=== PATIENT | female | born 1970 | race African-American/Black ===

== ENCOUNTER 2021-01-18 09:06 | Inpatient (IN) | payer MEDICAID, OTHER ==
[~2021-01-18] VITALS: Ht 165.1 cm; Wt 78.0 kg
[2021-01-18] MEDS ORDERED: estrogen (09:20)
[2021-01-18] MEDS ORDERED: ELVI1TAB3 PO ×2 (09:20→20:55)
[2021-01-18] MEDS ORDERED: SPIR25TA6 PO (09:21)
[2021-01-18] MEDS ORDERED: ACETAMINOPHEN 325MG TABLET PO ONE (10:00)
[2021-01-18 11:12] LABS: BASOPHILS % 0.7 % (0.0-2.0); EOSINOPHILS % 0.3 % (0.0-5.0); HEMATOCRIT. 35.4 % (36.0-48.0); HEMOGLOBIN. 11.8 g/dL (12.0-16.0); LYMPHOCYTES % 11.2 % (20.0-50.0); MEAN CORPUSCULAR HEMOGLOBIN 29.1 pg (28.0-32.0); MEAN CORPUSCULAR VOLUME 87.1 fL (81.0-99.0); MEAN PLATELET VOLUME 10.4 fl (7.4-10.4); MONOCYTES % 7.6 % (2.0-8.0); NEUTROPHILS % 80.2 % (40.0-76.0); PLATELET 331 x1000/uL (130-400); RED BLOOD CELL COUNT 4.07 mill/uL (4.2-5.4); RED CELL DISTRIBUTION WIDTH 13.4 % (11.6-14.6)
[2021-01-18 11:17] LABS: CHLORIDE 97 mEq/L (98-107)
[2021-01-18] MEDS ORDERED: SODIUM CHLORIDE 0.9% 1000ML BAG (SEPSIS BOLUS) IV NR (11:45)
[2021-01-18 12:36] LABS: CLARITY URINE CLEAR (CLEAR); COLOR URINE YELLOW (YELLOW); KETONES URINE TRACE (NEGATIVE); LEUKOCYTE ESTERASE URINE TRACE (NEGATIVE); NITRITE URINE NEGATIVE (NEGATIVE); OCCULT BLOOD URINE NEGATIVE (NEGATIVE); PH URINE 5.5 (4.5-8.0); PROTEIN URINE 2+ (NEGATIVE); SPECIFIC GRAVITY URINE 1.021 (1.005-1.030)
[2021-01-18 12:59] LABS: *BARBITURATES SCREEN URINE NEGATIVE (NEGATIVE); *BENZODIAZEPINES SCREEN URINE NEGATIVE (NEGATIVE); *COCAINE SCREEN URINE NEGATIVE (NEGATIVE); METHADONE URINE SCREEN NEGATIVE (NEGATIVE); OPIATES URINE SCREEN NEGATIVE (NEGATIVE)
[2021-01-18 13:00] LABS: *AMPHETAMINES SCREEN URINE NEGATIVE (NEGATIVE); CANNABINOID URINE SCREEN NEGATIVE (NEGATIVE); PHENCYCLIDINE URINE SCREEN NEGATIVE (NEGATIVE)
[2021-01-18 13:10] LABS: ETHANOL BLOOD < 10 mg/dL
[2021-01-18 13:18] LABS: HCG SCREEN NEGATIVE
[2021-01-18] MEDS ORDERED: LORAZEPAM 0.5MG TABLET PO PRN (18:00)
[2021-01-18] MEDS ORDERED: ACETAMINOPHEN 325MG TABLET PO PRN ×2 (18:00)
[2021-01-18] MEDS ORDERED: ONDANSETRON HCL 4MG/2ML INJ IV PRN (18:00)
[2021-01-18] MEDS ORDERED: DOCUSATE SODIUM 100MG CAPSULE PO PRN (18:00)
[2021-01-18] MEDS ORDERED: CLONIDINE 0.1MG TABLET PO PRN (18:00)
[2021-01-18] MEDS ORDERED: IPRATROPIUM/ALBUTEROL 0.5-3(2.5)MG/3ML NEB HHN PRN (18:00)
[2021-01-18] MEDS ORDERED: HYDROCODONE/ACETAMINOPHEN 5/325MG TABLET PO PRN (18:00)
[2021-01-18 20:00] VITALS: BP 141/57
[2021-01-18] MEDS ORDERED: ESTR2TAB PO (20:54)
[2021-01-18] MEDS ORDERED: SPIR100T5 PO (20:55)
[2021-01-18] MEDS ORDERED: *PATIENT'S OWN MEDICATION STORAGE XX SCH (22:00)
[2021-01-18] MEDS: PIPERACILLIN/TAZOBACTAM 3.375 G in DEXTROSE 5% WATER 50 ML IV SCH (22:04)
[2021-01-18] MEDS ORDERED: PNEUMOCOCCAL 23-VAL P-SAC VAC 0.5 ML IM ONE (23:45)
[2021-01-18] MEDS ORDERED: INFLUENZA VACCINE 05/PF 0.5 ML SYRINGE IM ONE (23:45)
[2021-01-19] VITALS: BP 107/77
[2021-01-19] MEDS: VANCOMYCIN 1 G PREMIX 200 ML IV SCH ×2 (03:04→14:20)
[2021-01-19 04:00] VITALS: BP 117/73
[2021-01-19] MEDS: PIPERACILLIN/TAZOBACTAM 3.375 G in DEXTROSE 5% WATER 50 ML IV SCH ×2 (06:23→21:33)
[2021-01-19 08:00] VITALS: BP 105/72
[2021-01-19 12:00] VITALS: BP 107/72
[2021-01-19] MEDS: SPIRONOLACTONE 50MG TABLET PO SCH (13:50)
[2021-01-19] MEDS ORDERED: PIPERACILLIN/TAZOBACTAM 3.375 G in DEXTROSE 5% WATER 50 ML IV SCH (14:00)
[2021-01-19] MEDS ORDERED: NALOXONE HCL 0.4MG/ML VIAL IV PRN (14:45)
[2021-01-19 16:00] VITALS: BP 105/66
[2021-01-19 20:00] VITALS: BP 111/65
[2021-01-19] MEDS: GENVOYA PO SCH (21:34)
[2021-01-20] VITALS: BP_SYST 114; BP_SYST 137; BP_DIAS 75; BP_DIAS 86
[2021-01-20 04:00] VITALS: BP 114/75
[2021-01-20] MEDS: PIPERACILLIN/TAZOBACTAM 3.375 G in DEXTROSE 5% WATER 50 ML IV SCH ×3 (05:58→21:30)
[2021-01-20 08:00] VITALS: BP 123/78
[2021-01-20] MEDS: SPIRONOLACTONE 50MG TABLET PO SCH (08:54)
[2021-01-20] MEDS: VANCOMYCIN 750 MG PREMIX 150 ML IV SCH ×2 (11:12→21:30)
[2021-01-20 12:00] VITALS: BP 114/76
[2021-01-20 16:00] VITALS: BP 127/84
[2021-01-20 17:38] LABS: BASOPHILS % 0.9 % (0.0-2.0); EOSINOPHILS % 3.6 % (0.0-5.0); HEMATOCRIT. 39.9 % (36.0-48.0); HEMOGLOBIN. 12.9 g/dL (12.0-16.0); LYMPHOCYTES % 25.6 % (20.0-50.0); MEAN CORPUSCULAR HEMOGLOBIN 28.4 pg (28.0-32.0); MEAN CORPUSCULAR VOLUME 87.7 fL (81.0-99.0); MEAN PLATELET VOLUME 10.2 fl (7.4-10.4); MONOCYTES % 11.1 % (2.0-8.0); NEUTROPHILS % 58.8 % (40.0-76.0); PLATELET 307 x1000/uL (130-400); RED BLOOD CELL COUNT 4.54 mill/uL (4.2-5.4); RED CELL DISTRIBUTION WIDTH 13.4 % (11.6-14.6)
[2021-01-20] MEDS: GENVOYA PO SCH (21:29)
[2021-01-21] MEDS: PIPERACILLIN/TAZOBACTAM 3.375 G in DEXTROSE 5% WATER 50 ML IV SCH (05:38)
[2021-01-21 07:04] LABS: BASOPHILS % 0.7 % (0.0-2.0); EOSINOPHILS % 3.9 % (0.0-5.0); HEMATOCRIT. 40.4 % (36.0-48.0); HEMOGLOBIN. 13.4 g/dL (12.0-16.0); LYMPHOCYTES % 28.4 % (20.0-50.0); MEAN CORPUSCULAR HEMOGLOBIN 29.2 pg (28.0-32.0); MEAN CORPUSCULAR VOLUME 88.4 fL (81.0-99.0); MEAN PLATELET VOLUME 10.5 fl (7.4-10.4); MONOCYTES % 11.2 % (2.0-8.0); NEUTROPHILS % 55.8 % (40.0-76.0); PLATELET 326 x1000/uL (130-400); RED BLOOD CELL COUNT 4.57 mill/uL (4.2-5.4); RED CELL DISTRIBUTION WIDTH 13.3 % (11.6-14.6)
[2021-01-21 08:00] VITALS: BP 122/72
[2021-01-21] MEDS: SPIRONOLACTONE 50MG TABLET PO SCH (09:53)
[2021-01-21] MEDS: VANCOMYCIN 750 MG PREMIX 150 ML IV SCH (09:54)
[2021-01-21 12:00] VITALS: BP 113/78
[2021-01-21 13:06] VITALS: BP 113/78
== END 2021-01-21 14:00 | disposition home or self-care (01) | DRG 892 ==
LOC: ER 09:06 → 6EST 15:52 → EDBEDREQ 16:05 → EDBEDREQSVC 16:05 → EDBEDREQTM 16:05 → ENRESERV 16:25 → CANRESERV 16:25 → ENRESERV 16:43
PROVIDERS: ADMIT Internal Medicine; ATTEND Internal Medicine
DX: A41.9 Sepsis, unspecified organism (principal); B20 Human immunodeficiency virus [HIV] disease; E44.1 Mild protein-calorie malnutrition; R53.1 Weakness; Z20.822 Contact with and (suspected) exposure to COVID-19; K52.9 Noninfective gastroenteritis and colitis, unspecified; E87.1 Hypo-osmolality and hyponatremia; D64.9 Anemia, unspecified; Z68.28 Body mass index [BMI] 28.0-28.9, adult; Z82.49 Family history of ischemic heart disease and other diseases of the circulatory system; Z88.6 Allergy status to analgesic agent; Z79.899 Other long term (current) drug therapy
CPT/HCPCS: 36415; 71045; 74176; 80048; 80053; 80202; 80305; 80320; 81003; 83605; 83880; 84145; 84484; 84703; 85025; 85651; 86140; 87015; 87045; 87426; 87427; 87449; 87804; 90686; 90732; 99285; J2543; J3370; J7040; J7060; G0480